=== PATIENT | female | born 1935 | race Caucasian/White ===

== ENCOUNTER 2017-10-26 23:59 | Emergency (ER) | payer OTHER ==
[~2017-10-26] VITALS: Ht 162.6 cm; Wt 98.8 kg
[~2017-10-26 23:59] MED LIST: ALLO100T PO; AMIO200T7 PO; DOCU100C31 PO; FRRS300 PO; FURO-85 PO; MAGN1TAB19 PO; OXYC-643 PO; POLY335025 PEG; POTA-74 PO; SENN1TAB66 PEG; SIMV20TA2 PO; SULF800T23 PO
[2017-10-27 00:01] VITALS: TEMP 37; Ht 162.6 cm; Wt 98.8 kg
[2017-10-27] MEDS ORDERED: XYLOCAINE 1%/SOD BICARB 20 ML VIAL INFIL ONE (00:30)
[2017-10-27 01:06] LABS: HEMATOCRIT 29.8 % (37-47); HEMOGLOBIN 9.6 g/dL (12.0-16.0); MEAN CELL VOLUME 96.4 fL (80-100); MEAN CORPUSCULAR HEMOGLOBIN 31.1 pg (25-34); MEAN CORPUSCULAR HGB CONC 32.2 g/dl (32-36); MEAN PLATELET VOLUME 8.9 fL (7.4-10.4); PLATELET COUNT 180 K/uL (130-400); RED CELL DISTRIBUTION WIDTH CV 15.8 % (11.5-14.5); RED CELL DISTRIBUTION WIDTH SD 55.5 fL (36.4-46.3); WHITE BLOOD COUNT 8.42 K/uL (4.8-10.8)
--- NOTE | 2017-10-27 01:41 | EMERGENCY ROOM VISIT NOTE ---
ED Visit Note Patient was seen and evaluated at the request of my attending, Dr. Louis, for a right lower leg laceration. Please see Dr. King's dictation for full history of present illness and emergency department course outside of this repair. In short, the patient had a fall at home and has an L-shaped laceration along the anterior Tibia measuring 7.0 x 4.5 cm in dimension. Laceration repair. Patient elects to have their laceration repaired. Verbal consent was obtained to perform the procedure. There is an abundance of materials available for the procedure. Patient is not allergic to latex. Using sterile technique the wound was cleaned with Betadine. The area was sterilely draped. 17 ml of 1% buffered lidocaine was used to anesthetize the right lower leg laceration. Once the patient was anesthetized, the wound was copiously irrigated under pressure with sterile saline. The wound was explored and there appears to be 2 small arterial vessels with active bleeding along the lateral aspect of the laceration. The laceration was repaired using 20 simple interrupted 4-0 nylon sutures with the wound edges being well approximated. Hemostasis was achieved. The area was cleaned with sterile saline and dressed with bacitracin ointment and pressure bandage. Patient tolerated the procedure well without complications. Blood loss was negligible. 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 (2) Hypercholesterolemia Status: Chronic (3) Hypertension Status: Chronic (4) Obesity Status: Chronic Surgical Problems: (1) History of back surgery Status: Chronic Current/Historical Medications Scheduled Allopurinol (Zyloprim), 100 MG PO DAILY Amiodarone Hcl (Pacerone), 200 MG PO DAILY Ferrous Sulfate (Ferrous Sulfate), 325 MG PO BIDM Magnesium Oxide (Mg Supplement (Magnesium Oxide), 400 MG PO DAILY Potassium Chloride (Potassium Chloride Er), 20 MEQ PO HOLD Simvastatin (Zocor), 20 MG PO HS Sulfamethoxazole-Trimethoprim (Bactrim Ds 800MG/160MG), 1 TAB PO DAILY Scheduled PRN Docusate Sodium (Docusate Sodium), 100 MG PO BID PRN for Constipation Furosemide (Lasix), 20 MG PO DAILY PRN for Edema Oxycodone/Acetaminophen 5MG/325MG (Oxycodone/Acetaminophen 5MG/325MG), 1 TABLET PO Q6H PRN for Severe Pain Polyethylene Glycol 3350 (Miralax), 17 GM PEG DAILY PRN for Constipation Sennosides-Docusate Sodium (Senna/Docusate Sodium), 1 TAB PEG BID PRN for Constipation Allergies Coded Allergies: Celecoxib (Verified Allergy, Intermediate, swelling of eyes and feet, 10/07) Penicillins (Verified Allergy, Unknown, PCN, AMOXICILLIN, 11/19/09) Vital Signs Date Time Temp Pulse Resp B/P (MAP) Pulse Ox O2 Delivery O2 Flow Rate FiO2 10/27/17 00:01 37.0 76 18 178/65 93 Room Air Laboratory Results 10/27/17 00:52 Test 10/27/17 00:52 Red Blood Count 3.09 M/uL (4.2-5.4) Mean Corpuscular Volume 96.4 fL (80-100) Mean Corpuscular Hemoglobin 31.1 pg (25-34) Mean Corpuscular Hemoglobin Concent 32.2 g/dl (32-36) RDW Standard Deviation 55.5 fL (36.4-46.3) RDW Coefficient of Variation 15.8 % (11.5-14.5) Mean Platelet Volume 8.9 fL (7.4-10.4) Medications Administered Medications (Trade) Dose Ordered Sig/Guadalupe Route Start Time Stop Time Status Last Admin Dose Admin Lidocaine HCl (Buffered Lidocaine 1% Inj) 20 ml ONE ONCE INFIL 10/27/17 00:30 10/27/17 00:32 DC 10/27/17 00:47 20 ML Departure Information Referrals Jose Almonte M.D.([facility]) (PCP) Patient Instructions [facility]
[2017-10-27 02:59] VITALS: BP 165/72; PULSE 76; O2SAT 93
--- NOTE | 2017-10-27 06:22 | EMERGENCY ROOM VISIT NOTE ---
History Report prepared by Singh: Chanel Pittman Under the Supervision of: Dr. Radha Louis D.O. First contact with patient: 00:06 Chief Complaint: FALL Stated Complaint: FALL/LEG INJURY History of Present Illness The patient is an 82 year old female who presents to the Emergency Room with complaints of an episode of a fall occurring prior to arrival. The patient states that she was watching wrestling and was walking using her walker. She states that her walker got caught on something and she lost her balance. She reports that she caught herself on the arms of the recliner and lowered herself to the floor. She states that in the midst of it all she cut her leg on a piece of the walker. The patient states that she did not feel the need to come in, but EMS insisted that she does. The patient denies being on blood thinners, hitting her head, back pain, and abdominal pain. The patient notes that she has had swelling in her legs for a few months. She notes that she is normally anemic and is on iron daily. She reports that she has had iron infusions in the past. Source of History: patient Onset: prior to arrival Position: other (global) Quality: other (laceration) Timing: other (episode) Associated Symptoms: No abdominal pain, No back pain Review of Systems See HPI for pertinent positives & negatives. A total of 10 systems reviewed and were otherwise negative. Past Medical & Surgical Medical Problems: (1) Anemia (2) Bone infection of leg (3) Hypercholesterolemia (4) Hypertension (5) Obesity Surgical Problems: (1) History of back surgery Family History No significant family history Social History Smoking Status: Unknown if Ever Smoked Marital Status: single Housing Status: lives with family Occupation Status: retired Current/Historical Medications Scheduled Allopurinol (Zyloprim), 100 MG PO DAILY Amiodarone Hcl (Pacerone), 200 MG PO DAILY Ferrous Sulfate (Ferrous Sulfate), 325 MG PO BIDM Magnesium Oxide (Mg Supplement (Magnesium Oxide), 400 MG PO DAILY Potassium Chloride (Potassium Chloride Er), 20 MEQ PO HOLD Simvastatin (Zocor), 20 MG PO HS Sulfamethoxazole-Trimethoprim (Bactrim Ds 800MG/160MG), 1 TAB PO DAILY Scheduled PRN Docusate Sodium (Docusate Sodium), 100 MG PO BID PRN for Constipation Furosemide (Lasix), 20 MG PO DAILY PRN for Edema Oxycodone/Acetaminophen 5MG/325MG (Oxycodone/Acetaminophen 5MG/325MG), 1 TABLET PO Q6H PRN for Severe Pain Polyethylene Glycol 3350 (Miralax), 17 GM PEG DAILY PRN for Constipation Sennosides-Docusate Sodium (Senna/Docusate Sodium), 1 TAB PEG BID PRN for Constipation Allergies Coded Allergies: Celecoxib (Verified Allergy, Intermediate, swelling of eyes and feet, 10/07) Penicillins (Verified Allergy, Unknown, PCN, AMOXICILLIN, 11/19/09) Physical Exam Vital Signs Date Time Temp Pulse Resp B/P (MAP) Pulse Ox O2 Delivery O2 Flow Rate FiO2 10/27/17 02:59 76 18 165/72 93 10/27/17 00:01 37.0 76 18 178/65 93 Room Air Physical Exam HEENT: Head - normocephalic and atraumatic Pupils are equal, round, and reactive to light. Extraocular eye muscles are intact, and sclera are anicteric. Nose - moist nasal mucosa without discharge. Mouth - moist buccal mucosa. Oropharynx is nonerythematous and there is no tonsillar exudate or edema noted. Neck: Supple; no JVD, nuchal rigidity, cervical lymphadenopathy. Heart: Regular rate and rhythm. There is a normal S1 and S2 with no murmurs, clicks, or gallops appreciated. Lungs: Clear to auscultation bilaterally with no wheezes, rales, or rhonchi. Abdomen: Soft, completely nontender, nondistended, with good bowel sounds. There are no palpable pulsatile masses or hepatosplenomegaly. There is no guarding, rigidity, or rebound noted. Extremities: No evidence of cyanosis or clubbing. There are easily palpable peripheral pulses. L shaped laceration to the anterior right lower leg 4.5 cm by 7 cm. 2+ edema in bilateral lower extremities. Skin: warm and dry with good turgor and no rashes. Medical Decision & Procedures Laboratory Results 10/27/17 00:52 Test 10/27/17 00:52 Red Blood Count 3.09 M/uL (4.2-5.4) Mean Corpuscular Volume 96.4 fL (80-100) Mean Corpuscular Hemoglobin 31.1 pg (25-34) Mean Corpuscular Hemoglobin Concent 32.2 g/dl (32-36) RDW Standard Deviation 55.5 fL (36.4-46.3) RDW Coefficient of Variation 15.8 % (11.5-14.5) Mean Platelet Volume 8.9 fL (7.4-10.4) Laboratory results per my review. Medications Administered Medications (Trade) Dose Ordered Sig/Guadalupe Route Start Time Stop Time Status Last Admin Dose Admin Lidocaine HCl (Buffered Lidocaine 1% Inj) 20 ml ONE ONCE INFIL 10/27/17 00:30 10/27/17 00:32 DC 10/27/17 00:47 20 ML Procedure 0030: Ordered Lidocaine HCl 20 ml INFIL. ED Course 0018: Past medical records reviewed. The patient was evaluated in room B6. A complete history and physical exam was performed. The patient had full range of motion of her lower extremity there was some arterial bleeding noted. 0030: Ordered Lidocaine HCl 20 ml INFIL. The wound was repaired by John Jansen PA-C. Please see his full dictation for the procedure note. 0136: Upon reevaluation, is resting comfortably. I discussed findings and results with her. She verbalized agreement of the treatment plan. The patient was discharged home. Medical Decision The patient is an 82 year old female who presents to the Emergency Room with complaints of an episode of a fall occurring prior to arrival. LABS: Hemoglobin 9.6 in comparison to June 2017 9.9 at [facility] This patient struck her right leg on her walker and suffered a laceration. This L-shaped laceration was repaired by John Jansen PA-C. I have asked the patient to keep her eye on this wound and keep it clean with soap and water and covered with a sterile dressing. She will need to have the sutures removed in approximately 10 days. Medication Reconcilliation Current Medication List: was personally reviewed by me Blood Pressure Screening Patient's blood pressure: Elevated blood pressure Blood pressure disposition: Elevated BP felt to be situational Impression Primary Impression: Laceration of right lower extremity Scribe Attestation The scribe's documentation has been prepared under my direction and personally reviewed by me in its entirety. I confirm that the note above accurately reflects all work, treatment, procedures, and medical decision making performed by me. Departure Information Dispostion Home / Self-Care Referrals Jose Almonte M.D.([facility]) (PCP) Forms HOME CARE DOCUMENTATION FORM, IMPORTANT VISIT INFORMATION Patient Instructions My [facility] Additional Instructions Rest with your right leg elevated. You can remove the pressure bandage later today and wash with soap and water. Cover again with antibiotic ointment and sterile dressing. Have sutures removed in 10 days Problem Qualifiers Primary Impression: Laceration of right lower extremity Encounter type: initial encounter Qualified Codes: S81.811A - Laceration without foreign body, right lower leg, initial encounter
== END 2017-10-27 03:00 | disposition home or self-care (01) ==
LOC: C.EDB 10-27 00:04
DX: S81.811A Laceration without foreign body, right lower leg, initial encounter (principal); W01.0XXA Fall on same level from slipping, tripping and stumbling without subsequent striking against object, initial encounter; D64.9 Anemia, unspecified; E78.00 Pure hypercholesterolemia, unspecified; E66.3 Overweight; Z88.6 Allergy status to analgesic agent; Z88.0 Allergy status to penicillin